=== PATIENT | female | born 1935 | race Caucasian/White ===

== ENCOUNTER 2017-03-19 16:05 | Emergency (ER) | payer MEDICARE ==
[~2017-03-19] VITALS: Ht 160 cm; Wt 65.4 kg
[~2017-03-19 16:05] MED LIST: ARIP2TAB3 PO; ATE25T PO; CLOP75TA35 PO; DET2LAC PO; FLUO20CA39 PO; ISOS30TA9 PO; MELO-83 PO; NIAC500T9 PO; PANT40TA39 PO; SYN0.025T PO; TRAZ-91 PO; ZOC40T PO
[2017-03-19 16:17] VITALS: BP 138/66
[2017-03-19] MEDS ORDERED: ipratropium/albuterol 3ml nebule NEB ONE (16:40)
[2017-03-19] MEDS ORDERED: AZIT250T PO (16:55)
[2017-03-19] MEDS ORDERED: BENZ-16 PO (17:30)
== END 2017-03-19 17:30 | disposition home or self-care (01) ==
LOC: ER 16:06
DX: J20.9 Acute bronchitis, unspecified (principal); I10 Essential (primary) hypertension; Z90.49 Acquired absence of other specified parts of digestive tract; Z88.2 Allergy status to sulfonamides; Z79.899 Other long term (current) drug therapy
CPT/HCPCS: 71045; 94640; 94760; 99283

== ENCOUNTER 2020-08-14 08:57 | Day surgery (SDC) | payer MEDICARE ==
[2020-08-13 11:00] LABS: BASOPHILS # (AUTO) 0.1 X10'3 (0-0.2); BASOPHILS % (AUTO) 0.9 % (0-1); EOSINOPHILS # (AUTO) 0.1 X10'3 (0-0.9); EOSINOPHILS % (AUTO) 1.2 % (0-6); HEMATOCRIT 37.4 % (35.0-45.0); HEMOGLOBIN 12.6 g/dl (12.0-16.0); LYMPHOCYTES # (AUTO) 0.9 X10'3 (1.1-4.8); LYMPHOCYTES % (AUTO) 13.6 % (21-51); MEAN CORPUSCULAR HGB CONC 33.7 g/dL (33.0-36.5); MEAN CORPUSCULAR VOLUME 88.8 FL (78-98); MEAN PLATELET VOLUME 7.8 FL (7.4-10.4); MONOCYTES # (AUTO) 0.5 X10'3 (0-0.9); MONOCYTES % (AUTO) 8.5 % (2-12); NEUTROPHILS # (AUTO) 4.9 X10'3 (1.8-7.7); NEUTROPHILS % (AUTO) 75.8 % (42-75); PLATELET COUNT 249 X10'3 (140-440); RED BLOOD COUNT 4.21 X10'6 (4.20-5.60); RED CELL DISTRIBUTION WIDTH 14.3 % (11.5-14.5); WHITE BLOOD COUNT 6.4 X10'3 (4.5-11.0)
[2020-08-13 11:13] LABS: ALBUMIN 3.2 G/DL (3.4-5.0); ANION GAP 8 (8-16); BLOOD UREA NITROGEN 19 MG/DL (7-18); BUN/CREATININE RATIO 19.8 (6.6-38.0); CALCIUM 8.2 MG/DL (8.5-10.1); CHLORIDE 101 MMOL/L (99-107); CREATININE 0.96 MG/DL (0.40-0.90); GLUCOSE 85 MG/DL (70-104); POTASSIUM 4.5 MMOL/L (3.5-5.1); SODIUM 137 MMOL/L (135-145); TOTAL CARBON DIOXIDE 28.2 MMOL/L (24-32); eGFR 55 ML/MIN
[2020-08-13 11:18] LABS: PARTIAL THROMBOPLASTIN TIME 30 SECONDS (22-32)
[~2020-08-14] VITALS: Ht 157.5 cm; Wt 71.1 kg
[2020-08-14] VITALS (8 sets, daily range): BP systolic 109–164; BP diastolic 55–70
[~2020-08-14 08:57] MED LIST changes: +AZIT250T PO; +CLOP75TA34 PO; -CLOP75TA35 PO; +NIAC-48 PO; -NIAC500T9 PO
[2020-08-14] MEDS ORDERED: LORazepam 0.5 MG tablet PO PRN (09:30)
[2020-08-14] MEDS ORDERED: diphenhydrAMINE 25mg capsule PO PRN (09:30)
[2020-08-14] MEDS ORDERED: LOPE2CAP PO (09:31)
[2020-08-14] MEDS ORDERED: PRIM50TA27 PO (09:32)
[2020-08-14] MEDS ORDERED: PRAV20TA4 PO (09:33)
[2020-08-14] MEDS ORDERED: ISOS30TA84 PO (09:37)
[2020-08-14] MEDS ORDERED: OLAN5TAB5 PO (09:38)
[2020-08-14] MEDS ORDERED: METH10TA4 PO (09:39)
[2020-08-14] MEDS: normal saline 1,000 ML IV SCH ×2 (11:30→20:10)
[2020-08-14] MEDS ORDERED: nitroGLYCERIN-Tridil 50MG/D5W 250 ML IV ONE (13:52)
[2020-08-14] MEDS ORDERED: heparin 1,000unit/ml 10ml vial 10 ML ONE (13:53)
[2020-08-14] MEDS ORDERED: fentaNYL/PF 50MCG/1 ML 2ML syringe ONE (13:53)
[2020-08-14] MEDS ORDERED: verapamil 2.5 mg/ml inj IV ONE (13:53)
[2020-08-14] MEDS ORDERED: iohexol 350 MG/ML 50ML vial IV ONE (13:53)
[2020-08-14] MEDS ORDERED: midazolam 1 mg/ML 2ml injection ONE (13:53)
[2020-08-14] MEDS ORDERED: iohexol 350MG/ML 100ml bottle IV ONE ×2 (13:53→14:41)
[2020-08-14] MEDS ORDERED: LIDOcaine 1% (10mg/ml)w/preservative injection 20ml MDV ONE (13:53)
[2020-08-14] MEDS ORDERED: heparin 25,000 UNIT/250ml bag 250 ML IV ONE (14:41)
[2020-08-14] MEDS ORDERED: clopidogrel 300mg tablet ONE (15:14)
--- NOTE | 2020-08-14 16:30 | NUR ---
Report to DOM Stephens on [facility]. Pt transferred with all belongings. Perclose to (R) groin without hematoma.
--- NOTE | 2020-08-14 18:13 | NUR ---
Patient in room MED 313. I have received report from Kat FERNANDES and had the opportunity to ask questions and assume patient care. Rounded and introduced self and discussed plan of care. Patient denies needs, eager to eat dinner.
[2020-08-14] MEDS: FLUoxetine 20mg capsule PO SCH (20:14)
[2020-08-14] MEDS: atenolol 25mg tablet PO SCH (20:16)
--- NOTE | 2020-08-14 20:45 | NUR ---
Patient sat up slightly, patient denies pain or discomfort
--- NOTE | 2020-08-14 20:46 | NUR ---
Called Dr. Fernandez's office to request Gabapentin 300mg PO. Patient states she takes this at night for restless leg and she forgot to mention it during her medication reconciliation.
--- NOTE | 2020-08-14 20:50 | NUR ---
Spoke to Dr. Fernandez on the tele phone regarding home medication Gabapentin. Rebecca comfortable ordering Gabapentin 300mg PO at bedtime as this is what the patient takes at home. Dr. Fernandez inquired about the result of the EKG post cath and I could not find the results in the paper chart. requested I redo the EKG. EKG redone and placed in patient's paper chart.
[2020-08-14] MEDS ORDERED: gabapentin 300mg capsule PO SCH (21:00)
[2020-08-15 02:00] VITALS: BP 104/62
--- NOTE | 2020-08-15 03:10 | NUR ---
patient states liquid stool is normal for her since she had her colon removed in 2011 Addendum: 08/15/20 at 0356 by Shannon Sotelo RN Amended: Links added.
--- NOTE | 2020-08-15 04:47 | NUR ---
Patient would like Dr. Fernandez to expedite her discharge home because her son is her ride and he is leaving for [place] this morning. If possible she would like to be discharged prior to 0800.
--- NOTE | 2020-08-15 05:18 | NUR ---
Patient used the bedpan several times this evening and eventually started walking to the bathroom. Patient able to ambulate independently and uses the call light reliably.
[2020-08-15] MEDS: normal saline 1,000 ML IV SCH (05:30)
[2020-08-15 06:00] VITALS: BP 104/56
--- NOTE | 2020-08-15 06:13 | NUR ---
Problems reprioritized. Patient report given, questions answered & plan of care reviewed with Kat RN. Patient sleeping for bedside report.
[2020-08-15 06:26] LABS: BASOPHILS % (AUTO) 0.6 % (0-1); EOSINOPHILS # (AUTO) 0.1 X10'3 (0-0.9); EOSINOPHILS % (AUTO) 1.3 % (0-6); HEMATOCRIT 35.6 % (35.0-45.0); HEMOGLOBIN 12.1 g/dl (12.0-16.0); LYMPHOCYTES # (AUTO) 0.8 X10'3 (1.1-4.8); MEAN CORPUSCULAR HEMOGLOBIN 30.1 PG (27.0-31.0); MEAN CORPUSCULAR VOLUME 88.5 FL (78-98); MEAN PLATELET VOLUME 7.8 FL (7.4-10.4); MONOCYTES # (AUTO) 0.6 X10'3 (0-0.9); MONOCYTES % (AUTO) 9.6 % (2-12); NEUTROPHILS % (AUTO) 76.5 % (42-75); PLATELET COUNT 224 X10'3 (140-440); RED BLOOD COUNT 4.02 X10'6 (4.20-5.60); RED CELL DISTRIBUTION WIDTH 14.6 % (11.5-14.5); WHITE BLOOD COUNT 6.6 X10'3 (4.5-11.0)
[2020-08-15 06:29] LABS: ALBUMIN 2.8 G/DL (3.4-5.0); ANION GAP 7 (8-16); BLOOD UREA NITROGEN 19 MG/DL (7-18); CALCIUM 7.7 MG/DL (8.5-10.1); CHLORIDE 104 MMOL/L (99-107); GLUCOSE 90 MG/DL (70-104); POTASSIUM 4.3 MMOL/L (3.5-5.1); SODIUM 138 MMOL/L (135-145); TOTAL CARBON DIOXIDE 27.3 MMOL/L (24-32); eGFR 52 ML/MIN
[2020-08-15] MEDS: FLUoxetine 20mg capsule PO SCH (07:25)
[2020-08-15 07:28] VITALS: BP_SYST 104
[2020-08-15] MEDS: atenolol 25mg tablet PO SCH (07:28)
[2020-08-15] MEDS ORDERED: isosorbide mononitrate 30mg tab.SR.24H PO SCH (08:00)
[2020-08-15] MEDS ORDERED: primidone 50mg tablet PO SCH (08:00)
[2020-08-15] MEDS ORDERED: atorvastatin 10mg tablet PO SCH (08:00)
[2020-08-15] MEDS ORDERED: clopidogrel 75mg tablet PO SCH (08:00)
[2020-08-15] MEDS ORDERED: loperamide 2mg capsule PO SCH (08:00)
[2020-08-15] MEDS ORDERED: OLANZAPINE 5 MG TABLET PO SCH (08:00)
[2020-08-15] MEDS ORDERED: Meloxicam 15 MG TAB PO SCH (08:00)
[2020-08-15] MEDS ORDERED: levoTHYROXINE 25mcg tablet PO SCH (08:00)
[2020-08-15] MEDS ORDERED: methylphenidate 5mg tablet PO SCH (08:00)
--- NOTE | 2020-08-15 08:54 | NUR ---
PAGED CONVERTIBLE TOP INSTALLER FOR AM EKG
[2020-08-15] MEDS ORDERED: aspirin 81mg tablet.DR PO SCH (09:35)
[2020-08-15] MEDS ORDERED: ATOR40TA PO (10:38)
[2020-08-15] MEDS ORDERED: CLOP75TA15 PO (10:39)
--- NOTE | 2020-08-15 12:22 | NUR ---
DISCHARGE TEACHING DONE. ALL QUESTIONS ANSWERED AND COPY OF SIGNED FORM IN CHART. IV AND TELE DISCONTINUED. ALL BELONGINGS WITH PT. PT TAKEN DOWN TO LOBBY BY WHEELCHAIR TO PRIVATE VEHICLE.
== END 2020-08-15 11:24 | disposition home or self-care (01) ==
LOC: SSTAY O 08:57 → MED 3N 16:11 → SSTAY O 08-15 03:40 → UNDOADMOB 08-15 03:43 → MED 3N 08-15 03:43 → UNDODISOB 08-15 11:24 → SSTAY O 08-15 11:24
PROVIDERS: ATTEND Internal Medicine Cardiovascular Disease
DX: R94.39 Abnormal result of other cardiovascular function study (principal); R06.02 Shortness of breath; R53.83 Other fatigue; T82.855A Stenosis of coronary artery stent, initial encounter; I25.810 Atherosclerosis of coronary artery bypass graft(s) without angina pectoris; I25.82 Chronic total occlusion of coronary artery; E78.5 Hyperlipidemia, unspecified; E03.9 Hypothyroidism, unspecified; F32.9 Major depressive disorder, single episode, unspecified; M19.90 Unspecified osteoarthritis, unspecified site; I12.9 Hypertensive chronic kidney disease with stage 1 through stage 4 chronic kidney disease, or unspecified chronic kidney disease; N18.9 Chronic kidney disease, unspecified; E78.49 Other hyperlipidemia; Z96.659 Presence of unspecified artificial knee joint; Z98.890 Other specified postprocedural states; Z79.899 Other long term (current) drug therapy; Z88.1 Allergy status to other antibiotic agents; Z88.2 Allergy status to sulfonamides; Z82.3 Family history of stroke; Y83.8 Other surgical procedures as the cause of abnormal reaction of the patient, or of later complication, without mention of misadventure at the time of the procedure; Y92.89 Other specified places as the place of occurrence of the external cause
CPT/HCPCS: 36415; 76937; 80048; 85025; 85347; 85610; 85730; 93005; 93459; 99152; 99153; C1725; C1751; C1760; C1769; C1874; C1894; C9600; J1644; J2001; J2250; J3010; J7030; Q9967; A4620; A5120; A6258; G0378; J3490

== ENCOUNTER 2020-11-15 21:41 | Outpatient (CLI) | payer MEDICARE ==
[~2020-11-15 21:41] MED LIST changes: -ARIP2TAB3 PO; -AZIT250T PO; +CLOP75TA15 PO; -DET2LAC PO; +ISOS30TA84 PO; -ISOS30TA9 PO; +LOPE2CAP PO; +METH10TA4 PO; -NIAC-48 PO; +OLAN5TAB5 PO; -PANT40TA39 PO; +PRIM50TA27 PO; -TRAZ-91 PO; -ZOC40T PO
[2020-11-15 22:49] LABS: UA COLLECTION TYPE NON-SPECIFIED
[2020-11-15 22:50] LABS: CLARITY,URINE CLOUDY (Clear); COLOR,URINE YELLOW (Yellow); GLUCOSE, URINE NEGATIVE (Neg); KETONES,URINE NEGATIVE (Neg); LEUKOCYTE ESTERASE ,URINE MODERATE (Neg); NITRITES, URINE NEGATIVE (Neg); OCCULT BLOOD,URINE NEGATIVE (Neg); PROTEIN,URINE NEGATIVE (Neg); UROBILINOGEN,URINE 0.2 E.U/dL (0.2-1.0)
[2020-11-15 22:58] LABS: BACTERIA,URINE 4+ /HPF (Neg); CAL OXALATE CRYSTALS 4+ /HPF (NEGATIVE); MUCUS STRANDS MODERATE /LPF (Neg); RBC,URINE NONE SEEN /HPF (0-2); RENAL CELLS, URINE FEW /HPF; SQUAMOUS EPITHELIAL CELL,UR MODERATE /LPF (FEW); TRANSITIONAL EPI CELLS,URINE FEW /HPF; WBC,URINE 50-100 /HPF (0-4)
== END 2020-11-15 23:59 | disposition home or self-care (01) ==
LOC: LAB SPEC 21:41
PROVIDERS: ATTEND General Practice
DX: R30.0 Dysuria (principal)
CPT/HCPCS: 81001; 87077; 87088; 87186